=== PATIENT | female | born 1960 | race Caucasian/White ===

== ENCOUNTER 2016-07-19 19:04 | Observation (INO) | payer OTHER ==
[~2016-07-19] VITALS: Ht 162.6 cm; Wt 98.5 kg
[2016-07-19 19:20] VITALS: BP 129/78; PULSE 94; RESP 16; O2SAT 95
[2016-07-19] MEDS ORDERED: LEVO88TA4 PO ×2 (19:52)
[2016-07-19] MEDS ORDERED: PRAV40TA PO (19:52)
--- NOTE | 2016-07-19 19:53 | ED.REPORT ---
HPI-Neurologic Deficit Date of Service July 19, 2016 ED Provider: Jos Cheatham MD 55 y/o female with a hx of brain injury in 1967, TIA and DM presents to the ED complaining of left arm weakness, onset 2 days ago. The pt states her sx originally started out with stiffness and throbbing pain, which resolved after she used a hot pack and took Tylenol. Though the pain resolved, her left arm, extending from her forearm to her shoulders, became increasingly stiff and numb. She has had similar sx over the years due to left side brain injury during childhood but current sx are significantly worse.The pt denies any significant change in her left hand and neck. Pt also reports intermittent nausea, dysphasia, blurred vision, back muscle spasms, diminished sensation in the left arm, chronic left foot drop, difficulty sitting up independently and mild numbness in her hips. The pt went to [place] for a wedding and reports she hasn't been the same since returning. The pt also reports consulting Dr. Stout who recognized 5 spots of demyelination on the brain, neck and spine on an MRI a couple of months ago. She has experienced sx suspected to be MS intermittently over several years, her impression is that she does not have an established diagnosis. Neurologist: Dr. Stout Nursing Notes Stated Complaint: LEFT ARM WEAKNESS Chief Complaint: Neuro Symptoms/ Deficits Nursing Notes Reviewed: Yes Allergies: Coded Allergies: gluten (Verified Allergy, Intermediate, 07/19/16) Uncoded Allergies: PENICILLIN (Allergy, Intermediate, RASH, 07/19/16) CONTRAST DYE (Allergy, Unknown, ANAPHALXIS, 07/19/16) Scheduled Cholecalciferol (Vitamin D3) (Vitamin D) 5,000 Unit Capsule 6,000 UNIT PO DAILY Cyanocobalamin (Vitamin B-12) (Vitamin B-12) 500 Mcg Lozenge 500 MCG PO DAILY Levothyroxine (Levothyroxine) 88 Mcg Tablet 88 MCG PO Levothyroxine (Levothyroxine) 88 Mcg Tablet 132 MCG PO MONDAY Multivitamin (Multi Vitamin Daily) 1 Each Tablet 1 EACH PO DAILY Pravastatin (Pravastatin) 40 Mg Tablet 40 MG PO HS Ubidecarenone (Co Q-10) 100 Mg Capsule 100 MG PO BID Vit B Comp/C/FA/Iron/Vit E (Vitamin B Complex Tablet) 1 Each Tablet 1 EACH PO DAILY Miscellaneous Medications Calcium Carb/Magnesium Cmb #10 (Marshall-Mag Tablet Chewable) 1 Each Tab.chew 1 EACH PO General Time Seen by Provider: 19:52 Chief Complaint Weakness arm... (Left) Hx Obtained From: Patient Arrived By: Walk-in Sudden in Onset?: No Onset Occurred: 2 days ago Symptom Duration: Since onset Past Medical History Past Medical History Reports: Diabetes mellitus, Transient ischemic attack Past Surgical History none reported Smoking History Unknown if Ever Smoker Ambulatory Status Independent Review of Systems Reports: Dysphasia Reports: Back muscle spasms Reports: Left arm spasms Reports: Diminished sensation in left arm GI: Reports: Nausea Musculoskeletal: Reports: Back pain, Extremity pain, Denies: Neck pain Neurologic: Reports: Focal weakness, Numbness (Left arm), Vision change, Weakness Complete sys rev & neg: except as marked. Physical Exam Initial Vital Signs Vital Signs (First) Date Time Temp Pulse Resp B/P Pulse Ox O2 Delivery O2 Flow Rate FiO2 07/19/16 19:20 37.1 94 16 129/78 95 Room Air Initial VS: Reviewed Head / Eyes: Atraumatic, Normocephalic, PERRL, EOMI Cardiovascular: Heart rate NL, Regular rhythm, Heart sounds NL, No gallop, No murmurs Neurologic: Oriented X3, Speech NL No facial droop. Shoulder shrug absent on left side. Flexion/Extension met with spastic resistance on left arm. Left hand pharmacy technologist = 3/5 Decreased pin prick sensation on left arm. ENT: Atraumatic, Airway patent, Mucous membranes moist Uvula elevates to midline Lower Extremity / Pelvis / MS: Atraumatic, Full range of motion, Neurologic intact, Vascular intact Abnormal Mood/Affect: Positive: Anxious Interpretation & Diagnostics Exam: MR brain with contrast Impression: there are several nonspecific bilateral punctate areas of increased signal intensity on T2 and flair within the periventricular and subcortical white matter. MS plaques or possible given the clinical history. Signed: J Carlos Barrett M.D. 07/19/16; 23:24 Lab Results Interpretation Result Diagram: 07/19/16200407/19/162004 Test 07/19/16 20:03 07/19/16 20:05 Urine Color Straw (YELLOW) Urine Appearance Clear (CLEAR,HAZY) Urine pH 5.5 (5.0-8.0) Urine Specific [place] <1.005 (1.003-1.035) Urine Protein Negativemg/dL (NEG,TRACE) Urine Glucose (UA) Negativemg/dL (NEGATIVE) Urine Ketones Negativemg/dL (NEGATIVE) Urine Occult Blood Moderate (NEGATIVE) Urine Nitrite Negative (NEGATIVE) Urine Bilirubin Negative (NEGATIVE) Urine Urobilinogen Normalmg/dL (NORMAL) Urine Leukocyte Esterase Negative (NEGATIVE) Urine RBC 0-2/hpf (0-2) Urine WBC 0-5/hpf (0-5) Urine Epithelial Cells Occasional/hpf (NONE-MOD) Urine Crystals None seen (NONE SEEN) Urine Bacteria None/hpf (NONE-FEW) Urine Hyaline Casts None/lpf (NONE) Urine Granular Casts None seen (NONE SEEN) Urine Waxy Casts None seen (NONE SEEN) Urine Red Blood Cell Casts None seen (NONE SEEN) Urine White Blood Cell Casts None seen (NONE SEEN) Urine Mucus None seen (None Seen) Urine Trichomonas None seen (NONE SEEN) Urine Yeast None (NONE SEEN) Urinalysis Comment None Urine Culture Reflexed Not indicated Urine Osmolality 313mOs/kH2O (250-1200) Urine Random Creatinine 9.9mg/dL (15-278) Urine Random Potassium 38mEq/L White Blood Count 6.5th/mm3 (3.8-10.1) Red Blood Count 4.87mil/mm3 (3.90-5.20) Hemoglobin 15.1g/dL (12.0-15.6) Hematocrit 44.1% (35.0-46.0) Mean Corpuscular Volume 90.6fL (81-100) Mean Corpuscular Hemoglobin 31.0pg (27.0-35.0) Mean Corpuscular Hemoglobin Concent 34.2% (32.0-37.0) Red Cell Distribution Width 13.7% (12.3-15.4) Platelet Count 244bil/L (150-400) Neutrophils (%) (Auto) 53.4% (40-74) Lymphocytes (%) (Auto) 37.5% (14-46) Monocytes (%) (Auto) 7.4% (4-12) Eosinophils (%) (Auto) 0.9% (0-5) Basophils (%) (Auto) 0.5% (0-3) Erythrocyte Sedimentation Rate 32mm/hr (0-40) Prothrombin Time 9.6sec (8.1-12.5) Prothromb Time International Ratio 0.90ratio Activated Partial Thromboplast Time 26.1sec (22.8-33.0) Sodium Level 138mEq/L (134-144) Potassium Level 3.4mEq/L (3.5-5.2) Chloride Level 100mEq/L (97-108) Carbon Dioxide Level 20mmol/L (18-29) Blood Urea Nitrogen 16mg/dL (6-24) Creatinine 0.71mg/dL (0.57-1.00) Estimat Glomerular Filtration Rate 122mL/min (>59) Glucose Level 117mg/dL (60-99) Osmolality 308 (275-300) Calcium Level 9.8mg/dL (8.5-10.1) Magnesium Level 2.2mg/dL (1.6-2.6) Total Bilirubin 0.2mg/dL (0.0-1.2) Aspartate Amino Transf (AST/SGOT) 27U/L (0-50) Alanine Aminotransferase (ALT/SGPT) 25U/L (0-32) Alkaline Phosphatase 75U/L (25-150) Total Creatine Kinase 112U/L (21-215) Troponin T < 0.010ug/L (0.0-0.011) C-Reactive Protein 0.4mg/dL (0.0-0.5) Total Protein 7.8g/dL (6.4-8.4) Albumin 4.7g/dL (3.4-5.0) Thyroid Stimulating Hormone (TSH) 1.610uIU/mL (0.450-4.500) Free Thyroxine 1.77ng/dL (0.82-1.77) Hold Caba Top Tube Received (Received) ECG Interpretation ECG Interpretation: Sinus tachycardia. Rate 104. Time: 20:03 Interpreted by: ED physician Re-Eval/Medical Decision Source of Hx: Old records Re-Evaluation/Progress : Time of Eval: 21:00 Re-Evaluation/Progress Note: Rechecked pt. Discussed lab, imaging results and diagnosis. . All questions addressed. Consultation #1: Referral / Consult Name: Tobias Garcia MD Consulted With: Neurology Call Returned at: 21:02 Template Clerk: Agrees with eval, Agrees with plan Consultation #2: Referral / Consult Name: Kalia Ortiz MD Call Returned at: 22:14 Template Clerk: Will see patient, Agrees with eval, Agrees with plan, Accepts admit Counseled Regarding: Diagnosis, Lab results, Need for admission Discharge & Departure Impression: Primary Impression: Left arm weakness Additional Impression: Multiple sclerosis exacerbation Disposition: ADMITTED TO HOSPITAL Discharge Condition All VS Reviewed: Yes Referrals: Antwon Ordoñez DO (PCP) Scribe Attestation Portions of this note were transcribed by Germain James. I, , personally performed the history, physical exam and medical decision-making;I reviewed and confirmed the accuracy of the information in the transcribed note. Signed by Luis Aguero. 07/19/16 1656 copies to: Antwon Ordoñez Donald L MD July 19, 2016 19:53 Germain James July 19, 2016 21:14
[2016-07-19 20:11] LABS: BASOPHILS % (AUTO) 0.5 % (0-3); EOSINOPHILS % (AUTO) 0.9 % (0-5); MONOCYTES % (AUTO) 7.4 % (4-12); Mean Corpuscular Volume 90.6 fL (81-100); NEUTROPHILS % (AUTO) 53.4 % (40-74); Platelet Count 244 bil/L (150-400)
[2016-07-19 20:25] LABS: APPEARANCE,URINE CLEAR (CLEAR,HAZY); COLOR,URINE STRAW (YELLOW); OCCULT BLOOD,URINE MODERATE (NEGATIVE); PH,URINE 5.5 (5.0-8.0); UROBILINOGEN,URINE NORMAL (NORMAL)
[2016-07-19 20:29] LABS: INR 0.9 ratio
--- NOTE | 2016-07-19 20:34 | DRSVH ---
PROCEDURE: CT BRAIN WITHOUT CONTRAST ([id number]) INDICATIONS: Stroke TECHNIQUE: Noncontrast 4.5 mm thick angled axial sections acquired from the foramen magnum to the vertex, with c oronal reformats. COMPARISON: None. FINDINGS: Image quality: Degraded by motion artifact. CSF spaces: Basal cisterns are patent. No extra-axial fluid collections. The ventricles are symmet vick in size and shape. Brain: No intracranial bleeds or masses. There is cerebral volume loss for age, with resultant vent ricular and sulcal prominence. There are periventricular and deep white matter chronic small vessel ischemic changes. There is intracranial internal carotid artery atherosclerosis. Skull and face: Calvarium and visualized facial bones appear intact, without suspicious lesions. Sinuses: Visualized sinuses and mastoids are clear. IMPRESSION: No acute intracranial process. Dictated by: Jesse Posey M.D. on 07/19/2016 at 20:29 Approved by: Jesse Posey M.D. on 07/19/2016 at 20:33
[2016-07-19 20:35] LABS: TROPONIN T < 0.010 ug/L (0.0-0.011)
[2016-07-19] MEDS ORDERED: Ondansetron 8 mg ODT Tablet PO ONE (21:10)
[2016-07-19] MEDS ORDERED: LORazepam 1 mg Tablet PO ONE (21:15)
[2016-07-19 21:20] VITALS: BP 158/59; PULSE 100; RESP 16; O2SAT 97
[2016-07-19] MEDS ORDERED: Polyethylene Glycol (PEG) 17 Gm Powder PO PRN (22:05)
[2016-07-19] MEDS ORDERED: Ondansetron 2 mg/mL 2 mL Inj IVPUSH PRN (22:05)
[2016-07-19] MEDS ORDERED: Alum-Mag Hydrox-Simeth 30 mL Suspension PO PRN (22:05)
[2016-07-19] MEDS: LORazepam 1 mg Tablet PO PRN (22:13)
[2016-07-19] MEDS ORDERED: Potassium Chloride 20 mEq SR Tablet PO ONE (22:15)
[2016-07-19 23:10] VITALS: BP 127/68; PULSE 85; RESP 20; O2SAT 98
[2016-07-19] MEDS: HYDROcodone-APAP 5-325 mg Tablet PO PRN (23:10)
[2016-07-19 23:22] VITALS: PULSE 96
[2016-07-19] MEDS ORDERED: VIT1TABL83 PO (23:26)
[2016-07-19] MEDS ORDERED: CYAN500L4 PO (23:26)
[2016-07-19] MEDS ORDERED: CALC-714 PO (23:26)
[2016-07-19] MEDS ORDERED: MULT-1018 PO (23:26)
[2016-07-19] MEDS ORDERED: CHOL500051 PO (23:26)
[2016-07-19] MEDS ORDERED: UBID100C25 PO (23:26)
[2016-07-20] MEDS ORDERED: Potassium Chloride 20 mEq SR Tablet PO ONE (00:10)
--- NOTE | 2016-07-20 00:44 | PCM.HPMED ---
Subjective Date of Service July 19, 2016 Primary Provider: Admitting Physician: Kalia Ortiz MD Primary Care Physician: Antwon Ordoñez DO Attending Physician: Kalia Ortiz MD Chief Complaint: Left arm weakness History of Present Illness: 55-year-old female with reported history of Sjogren's disease, celiac disease, anoxic brain injury, and Adalberto's who presented to the ED with complaints of left arm weakness 3 days. She reports she has had left arm weakness before, which she attributes to her anoxic brain injury, but not to this extent. She states there was also associated stiffness and pain originally, but that has improved with a hot pack and Tylenol. She continues to have left arm weakness, and also has chronic left foot drop. She reports intermittent associated nausea , dysphasia, blurred vision, and headaches. She was in [place] for a wedding a few weeks ago, and reports she hit her head on the corner of a cabinet, but there was no LOC. She denies any fevers, cough, rash, or facial asymmetry. She is currently a patient of Dr. Rogers, neurology. She has had multiple MRIs recently for a possible MS workup. In the ER, patient's Vitals were stable. Her CBC and CMP were unremarkable except a potassium of 3.4. She did have a UA that was positive for moderate blood but no RBC. She had a CT scan that did not show any acute changes. 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 Surgical History section Hysterectomy appendectomy Family History Denies any autoimmune disease in family Social History Hx Alcohol Use: Yes ("once in a while") Hx Substance Use: No Hx Tobacco Use: No Living Arrangement: with Family Exam Vital Signs Vital Sign - Last Date Time Temp Pulse Resp B/P Pulse Ox O2 Delivery O2 Flow Rate FiO2 07/19/16 21:20 100 16 158/59 97 Room Air 07/19/16 19:20 37.1 Exam Gen: Well developed female who appears in NAD, AOx3 HEENT: Nc/At, PERRLA, EOMI, sclera anicteric, Oropharynx moist and pink Neck: Soft, nontender CV: RRR, no m/r/c, peripheral pulses intact and equal Resp: CTAB, no w/r/c, normal resp effort Abd: Soft, NT, ND, obese, NABS MSK: MS grossly intact in RUE and RLE. Patient unable to raise left arm with moderately decreased pillow cleaner strength. Mild decrease in MS of left leg, with clonus to dtr testing. Neuro: CN 2-12 grossly intact, face symmetric, light sensation intact Skin: Warm, dry, intact Psych: Appropriate mood and affect, linear thought process. Lab and Diagnostics Result Diagram: 07/19/16200407/19/162004 X-Rays, CTs and MRIs PROCEDURE: CT BRAIN WITHOUT CONTRAST ([id number]) IMPRESSION: No acute intracranial process. Assessment & Plan 55-year-old female with reported history of Sjogren's disease, celiac disease, anoxic brain injury, and Adalberto's who presented to the ED with complaints of left arm weakness 3 days Left Arm Weakness, Present on Admission Patient with a history of multiple neurological symptoms and intermittent left arm weakness. There is some questioning of MS or periodic paralysis by her neurologist. She is mildly hypokalemic on presentation today and has had normal potassium with recent labs. She still could be having a CVA, although that seems unlikely with her history. Will await MRI to assess for TIA/CVA Will order urine labs to assess for possibility of hypokalemic periodic paralysis PT/OT for assessment Neurology consulted CRP, ESR to evaluate for any inflammatory myopathies CPK to evaluate moderate blood without RBC in urine further. May be due to muscle breakdown from extended left arm weakness. Hypokalemia, POA K 3.4 on admission Replenish with oral potassium Hyperlipidemia, POA Continue Pravastatin Adalberto's, POA Continue home Levothyroxine dosing TSH/FT4 pending Celiac Disease, POA Avoid gluten products Tylenol prn fever Bowel regimen prn constipation Code Status: Full resuscitation Dispo: Patient is admitted under obs status with LOS <2 midnights due to risk of adverse events, medical complexity, and decompensation. . Pain Evaluation: Adequate Pain Control VTE Prophylaxis: Sub-Q Enoxaparin, SCDs Resuscitation Status: CPR: Attempt Resuscitation Attending Statement The patient was seen and examined together with Dr. Burleson on 07/19 and I agree with the history, exam and plan as outlined in the note above. Adam Burleson DO July 19, 2016 22:23 Kalia Ortiz MD July 20, 2016 00:52
[2016-07-20] MEDS: 0.9% Sodium Chloride 1,000 ML IV SCH ×2 (01:39→13:20)
[2016-07-20 03:10] VITALS: BP 120/76; PULSE 72; RESP 22; O2SAT 94
[2016-07-20] MEDS: HYDROcodone-APAP 5-325 mg Tablet PO PRN ×4 (05:37→20:55)
[2016-07-20 07:24] LABS: BASOPHILS % (AUTO) 0.6 % (0-3); EOSINOPHILS % (AUTO) 0.8 % (0-5); MONOCYTES % (AUTO) 6.1 % (4-12); Mean Corpuscular Hemoglobin 30.7 pg (27.0-35.0); Mean Corpuscular Volume 91.8 fL (81-100); NEUTROPHILS % (AUTO) 52.7 % (40-74); Platelet Count 212 bil/L (150-400)
[2016-07-20] MEDS: LORazepam 1 mg Tablet PO PRN ×2 (08:19→15:43)
[2016-07-20 09:51] VITALS: BP 134/81; PULSE 81; RESP 20; O2SAT 97
--- NOTE | 2016-07-20 09:55 | DRSVH ---
PROCEDURE: MRI BRAIN WITH AND WITHOUT CONTRAST ([id number]) INDICATIONS: Left arm weakness and spasticity TECHNIQUE: Noncontrast axial T1 spin echo, axial T2 fast spin echo, sagittal and axial FLAIR, coronal T2 fast sp in echo, axial gradient echo, axial diffusion and ADC through the brain. After the administration of contrast, axial and coronal 3D VIBE or T1 spin echo with fat saturation through the brain. COMPARISON: [facility], MR, MR MS BRAIN W&WO CON, 12/09/2015, 13:01. [facility], CT, CT BRAIN WO CON, 07/19/2016, 20:09. FINDINGS: Image quality: Limited by patient motion artifact. CSF Spaces: Basal cisterns are patent. No extra-axial fluid collections. Ventricles are normal in size and shape. Brain: No midline shift. No intracranial bleeds. There is a small, approximately 0.9 x 0.7 x 0.6 cm left parietal convexity, parafalcine extra-axial mass which demonstrates homogeneous postcontrast en hancement most consistent with meningioma. No abnormal intracranial enhancement. The brainstem appe ars normal. Diffusion-weighted images demonstrate no acute ischemic insults. No susceptibility weigh cathleen abnormalities are identified in the brain parenchyma. A few, small, punctate foci of increased T2 signal noted in the periventricular and subcortical white matter tracts which is not significantly c hanged compared to prior examination. Normal intravascular flow voids are present. Skull and face: Calvarial marrow is normal in signal. Orbits appear normal. Sinuses: Sinuses and mastoids appear clear. IMPRESSION: 1. No acute intracranial disease process. 2. No areas of acute or chronic infarction. 3. Probable, small, left parietal, parafalcine meningioma. Dictated by: Miriam Nguyen MD, PhD on 07/20/2016 at 9:46 Approved by: Miriam Nguyen MD, PhD on 07/20/2016 at 9:53
[2016-07-20 10:31] VITALS: PULSE 72
[2016-07-20 14:26] VITALS: BP 120/72; PULSE 78; RESP 16; O2SAT 96
[2016-07-20 16:32] VITALS: BP 113/77; PULSE 77; RESP 18; O2SAT 97
--- NOTE | 2016-07-20 18:39 | PCM.PNMED ---
Subjective Date of Service July 20, 2016 Subjective Patient was seen and examined at bedside today. Patient denies any chest pain, shortness of breath, nausea, vomiting, diarrhea. Patient states that her left arm weakness has improved however it is still present but she no longer has any numbness, tingling, or shaking. Overnight events: None Exam Vital Signs Vital Sign - Last Date Time Temp Pulse Resp B/P Pulse Ox O2 Delivery O2 Flow Rate FiO2 07/20/16 16:32 36.3 77 18 113/77 97 Room Air Intake and Output 07/19/16 07/19/16 07/20/16 Cumulative From/Thru 15:00 23:00 07:00 07/19/16 19:20 - 07/20/16 06:32 Intake Total 0 ml 0 ml Output Total 450 ml 450 ml Balance -450 ml -450 ml Intake Oral 0 ml 0 ml Output Urine Total 450 ml 450 ml # Voids 2 2 # Bowel Movements 0 0 Exam Physical Exam: GEN: Patient was awake, alert, responding appropriately to questions HEENT: Pupils equal round and reactive to light, extraocular eye muscles intact , Neck soft supple, trachea midline, nomocephalic/atraumatic CV: +S1/S2, regular rate and rhythm, no murmurs auscultated Respiratory: CTAB, no wheezes, rales, rhonchi GI: +bowel sounds x4, soft, compressible, nontender to palpation EXT: no clubbing, cyanosis, edema Neuro: +2/4 radial and ulnar pulse, AIN/PIN/radial/ulnar nerve intact but sluggish he should had difficulty doing interaction testing each nerve, +4/5 C5 strength 5/5 C7 strength, upper extremity dermatomal sensation intact. Psych: mood and affect were appropriate IVs and Medications Medications Reviewed: Medications were reviewed in detail Lab and Diagnostics Result Diagram: 07/20/16 0655 07/20/16 0655 X-Rays, CTs and MRIs PROCEDURE: CT BRAIN WITHOUT CONTRAST ([id number]) IMPRESSION: No acute intracranial process. Assessment & Plan 55-year-old female with reported history of Sjogren's disease, celiac disease, anoxic brain injury, and Adalberto's who presented to the ED with complaints of left arm weakness 3 days Left Arm Weakness, Present on Admission -Patient with a history of multiple neurological symptoms and intermittent left arm weakness. There is some questioning of MS or periodic paralysis by her neurologist. She is mildly hypokalemic on presentation today and has had normal potassium with recent labs. She still could be having a CVA, although that seems unlikely with her history. -Follow up MRI results to assess for TIA versus CVA -Follow up labs -PT/OT for assessment -Neurology consulted (Dr. Garcia) -CRP, ESR to evaluate for any inflammatory myopathies Hypokalemia, POA -K 3.4 on admission -Replete potassium with 40 mEq IV -Follow up in the morning Hyperlipidemia, POA -Continue Pravastatin Adalberto's, POA -Continue home Levothyroxine dosing -TSH/FT4 1.610/1.77 WNL Celiac Disease, POA -Avoid gluten products Tylenol prn fever Bowel regimen prn constipation Code Status: Full resuscitation VTE Prophylaxis: Sub-Q Enoxaparin, SCDs VTE Mechanical Devices: Intermittant Pneumatic CD Resuscitation Status: CPR: Attempt Resuscitation Maier,Rain L DO July 20, 2016 18:39 . VTE Prophylaxis: Sub-Q Enoxaparin, SCDs VTE Mechanical Devices: Intermittant Pneumatic CD Resuscitation Status: CPR: Attempt Resuscitation Maier,Rain L DO July 20, 2016 18:39 Maier,Rain L DO July 20, 2016 18:39
[2016-07-20 19:02] LABS: Phosphorus 3.5 mg/dL (2.5-4.9)
[2016-07-20 19:51] VITALS: BP 148/89; PULSE 78; RESP 18; O2SAT 99
--- NOTE | 2016-07-20 23:26 | CONS ---
[address] [address] CONSULTATION REPORT PATIENT: KAVYA ALMARAZ : 1960 MR#: [id number] ADMIT: 07/19/2016 JOB ID: [id number] DATE OF SERVICE: 07/20/2016 REQUESTING PROVIDER: Jos Cheatham MD. CHIEF COMPLAINT: Episodic weakness HISTORY OF PRESENT ILLNESS: The patient is a very pleasant 56-year-old right-handed woman with multiple medical problems, who is a patient of Dr. Ordoñez and has seen my partner, Dr. Norma Stout, in the past. She does have a history of white matter changes appreciated on brain imaging and episodic weakness. History was obtained from the chart, my partner, Dr. Norma Stout's note, and the patient and her , Shar, who is at the bedside. She reports that she has seen multiple neurologists in the past and a concern has been as to whether or not she has multiple sclerosis or another etiology of intermittent muscle weakness. She does report that at age [age] she developed peritonitis secondary to a ruptured appendix and was in a coma for a month. She was on high-dose antibiotics and as well had abdominal drains. She reports that she sustained an anoxic brain injury, however, has made a dramatic recovery. She did have resultant left-sided upper and lower extremity weakness and cognitive changes. However, after one year she was strong enough to be able to walk with a leg brace on her left foot. She does have a history of multiple autoimmune disorders including Adalberto's thyrotoxicosis, celiac disease and Sjogren's disease. She reports no family history of any autoimmune diseases. She does report a family history though of celiac disease. She reports that over the last 1-2 years she has developed intermittent episodes of transient weakness which may last up to several days in duration. She reports that the weakness is generalized, however, most pronounced over her left upper and left lower extremities. She reports that she has seen a insulation estimator in the past and did try Plaquenil and was unable to tolerate it. She has tried steroids in the past and required a slow taper to withdrawal from steroids. She also has a history of hypertriglyceridemia, hyperlipidemia and pre-diabetes. She does wear an ankle-foot orthotic on the left ankle. Her medications include levothyroxine and pravastatin. She did see my partner, Dr. Norma Stout, on February 09, 2016. I have reviewed this note in detail. She reports that approximately two weeks ago she took a trip down to attend the wedding of a nephew in [place]. She reports that she suspects that she overexerted herself and that this may have "triggered" this episode of weakness. She reports that she developed generalized weakness 2-3 days ago, however, it was most pronounced in the left upper and left lower extremities. She reports that she also developed pain in her left upper extremity and noted spasms of the left upper extremity. She reports that after being admitted to the hospital and receiving medication that she feels almost back to normal. She does note some mild degree of weakness in the proximal left upper extremity, however, otherwise reports that she feels back to normal. She reports that the pain and spasticity have resolved. We discussed the differential diagnosis in detail. I reviewed her magnetic resonance imaging study of the brain in detail. She also reports that when she was in [place] she became pale and suspects that this also may have "triggered" this episode. PAST MEDICAL HISTORY: As above REVIEW OF SYSTEMS: A complete review of systems was performed. It was remarkable for above-noted. She also takes vitamin D 6000 international units and magnesium citrate. ALLERGIES: She is allergic to: 1. GLUTEN. 2. PENICILLIN. 3. CONTRAST DYE. PAST SURGICAL HISTORY: Status post appendectomy, status post hysterectomy, status post section. FAMILY HISTORY: No neurologic disorders. There is a family history of celiac disease. SOCIAL HISTORY: Occasional alcohol. No tobacco, no drugs. Lives with her . PHYSICAL EXAMINATION: Vital signs: Temperature 36.4, pulse of 78, respiratory rate of 18, blood pressure 148/89, pulse oximetry 99% on room air. General: She is a pleasant, well-developed, well-nourished woman in no acute distress. Head: Normocephalic, atraumatic. Neck is supple. No carotid bruits were auscultated. Negative Kernig. Negative Brudzinski. Chest: Clear to auscultation. Heart: Regular rate and rhythm. Abdomen: Soft, nondistended, nontender. Extremities: No cyanosis, clubbing, or edema. NEUROLOGIC EXAMINATION: Mental status: She is awake, alert, oriented x3. Speech clear and fluent with intact comprehension. There was no aphasia. Cranial nerves: Pupils equal, round, reactive to light. Extraocular movements were smooth and conjugate with no evidence of nystagmus. Face appeared symmetrical. Facial sensation was intact to light touch and temperature. Auditory sensation was intact to finger rub. Palatal elevation was symmetrical. Tongue was midline. Sternocleidomastoid and trapezii were 5/5 bilaterally. Motor: There is mildly increased tone in the left upper and left lower extremities. The left deltoid is 4+/5. The rest of muscles examined are 5/5 with the exception of left foot dorsiflexors which were 5-/5 with increased tone and decreased range of motion. Sensation intact to light touch and temperature. Deep tendon reflexes were symmetrical. Plantars were equivocal bilaterally. Gait was deferred. Coordination: [id number]-jh-[id number] was intact without evidence of dysmetria. IMPRESSION: Episodic weakness. We discussed the differential diagnosis in detail. I discussed with her potential etiologies. We reviewed the workup that has been performed so far. A myasthenia gravis panel was unremarkable. We discussed the possibility of hypokalemic periodic paralysis as suspected by my partner, Dr. Norma Stout. There are case reports of hypokalemic periodic paralysis in patients with Sjogren's disease. There are also reports suggesting that hypokalemic periodic paralysis may be seen in the setting of autoimmune disorders. Although there is no strong family history, she may benefit from obtaining genetic testing as an outpatient. However, I do recommend that prior authorization be obtained from her insurance company prior to the study being performed. I explained this to her in detail. RECOMMENDATIONS: We discussed supplemental potassium 20 mEq up to three times a day as needed at the onset of the reoccurrence weakness. We also discussed and reviewed recommendations by my partner, Dr. Norma Stout, to exercise only to tolerance, recognize stress, and recognize fatigue before it results in weakness. We discussed the importance of staying hydrated. She may also benefit from a trial of acetazolamide 250 mg twice daily. There are different types of hypokalemic periodic paralysis and although this is a rare disorder, it has been seen in the setting of Sjogren's syndrome, as well as other autoimmune disorders. It has also been seen in the setting of thyrotoxic periodic paralysis. Discussed findings and recommendations in detail with the patient and her , Antony I do recommend that she follow up with my partner, Dr. Norma Stout, and she does have an appointment on October 10, 2016, at 4 p.m. I would also recommend that she follow up with her primary care provider and with Dr. Mcintyre, her charge master specialist. Thank you, again, Dr. Cheatham, for allowing me to participate in the care of your patient. Please feel free to contact me with any questions or concerns. As noted, I did review in detail her brain imaging study. She had a brain CT demonstrating periventricular and deep white matter chronic small vessel ischemic changes, and a magnetic resonance imaging study of the brain demonstrating a small, approximately 0.9 x 0.7 x 0.6 cm left parietal convexity parafalcine extra-axial mass which demonstrates homogeneous postcontrast enhancement most consistent with meningioma. No abnormal intracranial enhancement was noted. A few small punctate foci of increased T2 signal were noted in the periventricular and subcortical white matter tracts, which is not significantly changed compared to the prior magnetic resonance imaging study of the brain performed on December 09, 2015. There were no areas of acute or chronic infarction. No acute intracranial disease process. We reviewed the medications that she received during her hospitalization and her initial potassium was noted to be 3.4, today is 4.0. I do recommend a potassium level tomorrow morning. She did receive hydrocodone/acetaminophen tablets one tablet p.o. q.4 h. as needed for moderate pain and lorazepam 1 mg by mouth up to 3 times a day as needed for anxiety or agitation. In addition to the potassium supplementation, she received a total of 60 mEq of potassium chloride. Otherwise, it does not appear that she received any other new medications during the course of this hospital stay. I explained to her that I suspect that the medication most likely resulted in the improvement of her symptoms with the potassium chloride. Thank you, again, for allowing me to participate in the care of this delightful and interesting patient. YOVANY
[2016-07-21] MEDS: 0.9% Sodium Chloride 1,000 ML IV SCH (00:02)
[2016-07-21 00:09] VITALS: BP 114/73; PULSE 63; RESP 18; O2SAT 97
[2016-07-21] MEDS: HYDROcodone-APAP 5-325 mg Tablet PO PRN ×2 (00:59→05:48)
[2016-07-21] MEDS: LORazepam 1 mg Tablet PO PRN ×2 (01:00→09:06)
[2016-07-21 04:34] VITALS: BP 142/77; PULSE 71; RESP 16; O2SAT 95
[2016-07-21 06:14] VITALS: PULSE 75
[2016-07-21 07:56] VITALS: PULSE 70
[2016-07-21 09:13] VITALS: BP 127/74; PULSE 87; RESP 16; O2SAT 96
[2016-07-21] MEDS ORDERED: ACET250T4 PO (11:51)
--- NOTE | 2016-07-21 11:56 | PCM.DIMED ---
Discharge Instructions Date of Service July 21, 2016 Dates of Hospitalization July 19, 2016 at 21:38 Discharge Diagnosis Discharge Diagnosis Left arm weakness most likely secondary to hypokalemia Hyperlipidemia Adalberto's Celiac disease Diet Heart Healthy, Other (please adhere to a gluten-free diet) Activity No restrictions (gradually returned to her normal daily activities) Call your provider Fever or Chills, Bleeding, Chest pain, Vomitting, Weakness (unilateral) Patient Instructions Follow-up Provider: Antwon Ordoñez DO Follow-up with PCP in: 1 week (if an appointment has not been made please call to schedule an appointment) Provider: Norma Stout MD Follow-up in: 6 weeks (please keep your appointment is currently scheduled for 10/10/2016 at 4 PM) Mid-level Provider (F9): Ranulfo Mcintyre MD Follow-up with Mid-level in: 2 weeks (if an appointment has not been made please call to schedule an appointment) Rain Maier DO July 21, 2016 11:56
--- NOTE | 2016-07-21 15:59 | PCM.DC.MED ---
Discharge Summary Date of Service July 21, 2016 Dates of Hospitalization Date of Hospital Admission July 19, 2016 at 21:38 Date of Discharge: July 21, 2016 Providers: Admitting Physician: Kalia Ortiz MD Primary Care Physician: Antwon Ordoñez DO Attending Physician: Kalia Ortiz MD Diagnosis at Time of Discharge Diagnosis at Time of Discharge Left arm weakness most likely secondary to hypokalemia Hyperlipidemia Adalberto's Celiac disease Consultations Neurology (Dr. Champagne) Procedures XRay, CTs & MRIs PROCEDURE: CT BRAIN WITHOUT CONTRAST ([id number]) IMPRESSION: No acute intracranial process. PROCEDURE: MRI BRAIN WITH AND WITHOUT CONTRAST ([id number]) IMPRESSION: 1. No acute intracranial disease process. 2. No areas of acute or chronic infarction. 3. Probable, small, left parietal, parafalcine meningioma. Dictated by: Miriam Nguyen MD, PhD on 07/20/2016 at 9:46 Approved by: Miriam Nguyen MD, PhD on 07/20/2016 at 9:53 Brief History 55-year-old female with reported history of Sjogren's disease, celiac disease, anoxic brain injury, and Adalberto's who presented to the ED with complaints of left arm weakness 3 days. She reports she has had left arm weakness before, which she attributes to her anoxic brain injury, but not to this extent. She states there was also associated stiffness and pain originally, but that has improved with a hot pack and Tylenol. She continues to have left arm weakness, and also has chronic left foot drop. She reports intermittent associated nausea , dysphasia, blurred vision, and headaches. She was in [place] for a wedding a few weeks ago, and reports she hit her head on the corner of a cabinet, but there was no LOC. She denies any fevers, cough, rash, or facial asymmetry. She is currently a patient of Dr. Rogers, neurology. She has had multiple MRIs recently for a possible MS workup. In the ER, patient's Vitals were stable. Her CBC and CMP were unremarkable except a potassium of 3.4. She did have a UA that was positive for moderate blood but no RBC. She had a CT scan that did not show any acute changes. Hospital Course 55-year-old female with reported history of Sjogren's disease, celiac disease, anoxic brain injury, and Adalberto's who presented to the ED with complaints of left arm weakness 3 days Patient presented with left arm weakness and TIA rule out. The patient's MRI showed no intra-cranial acute processes however there was a small, left parietal , parafalcine meningioma. The patient has been advised to maintain her follow- up appointment with Dr. Stout on 10/10/2016 at [address] this time [address] champagne feels that the patient's left arm weakness secondary to hypokalemia and has placed the patient on acetazolamide 250 mg twice a day. The patient was also advised to follow up with her bulldozer operator Dr. Mcintyre as some of her issues could also be secondary to many of the autoimmune issues that the patient has. The patient has been recommended by Dr. champagne also follow-up with her PCP for closer follow-up with her potassium. The patient is being discharged home in stable condition. Hospital course see below: Left Arm Weakness, Present on Admission -Patient with a history of multiple neurological symptoms and intermittent left arm weakness. There is some questioning of MS or periodic paralysis by her neurologist. She is mildly hypokalemic on presentation today and has had normal potassium with recent labs. She still could be having a CVA, although that seems unlikely with her history. -Follow up MRI: No acute intracranial processes noted, probable, small, left parietal, parafalcine meningioma -PT/OT for assessment -Neurology consulted (Dr. Champagne): Advised the patient to take Acetazolamide 250 mg twice a day -CRP, ESR to evaluate for any inflammatory myopathies Hypokalemia, POA (resolved) -K 4.4Meq -Replete potassium with 40 mEq IV -Follow up in the morning Hyperlipidemia, POA -Continue Pravastatin Adalberto's, POA -Continue home Levothyroxine dosing -TSH/FT4 1.610/1.77 WNL Celiac Disease, POA -Avoid gluten products Tylenol prn fever Bowel regimen prn constipation Code Status: Full resuscitation Exam Vital Signs (Last) Date Time Temp Pulse Resp B/P Pulse Ox O2 Delivery O2 Flow Rate FiO2 07/21/16 09:13 36.8 87 16 127/74 96 Room Air Exam Physical Exam: GEN: Patient was awake, alert, responding appropriately to questions HEENT: Pupils equal round and reactive to light, extraocular eye muscles intact , Neck soft supple, trachea midline, nomocephalic/atraumatic CV: +S1/S2, regular rate and rhythm, no murmurs auscultated Respiratory: CTAB, no wheezes, rales, rhonchi GI: +bowel sounds x4, soft, compressible, nontender to palpation EXT: no clubbing, cyanosis, edema Neuro: +2/4 radial and ulnar pulse, AIN/PIN/radial/ulnar nerve intact but sluggishness significantly improved from yesterday. +4/5 C5 strength 5/5 C7 strength, upper extremity dermatomal sensation intact. Psych: mood and affect were appropriate Test 07/19/16 20:03 07/19/16 20:05 07/20/16 06:55 07/21/16 05:31 Urine Color Straw (YELLOW) Urine Appearance Clear (CLEAR,HAZY) Urine pH 5.5 (5.0-8.0) Urine Specific Enigma <1.005 (1.003-1.035) Urine Protein Negativemg/dL (NEG,TRACE) Urine Glucose (UA) Negativemg/dL (NEGATIVE) Urine Ketones Negativemg/dL (NEGATIVE) Urine Occult Blood Moderate (NEGATIVE) Urine Nitrite Negative (NEGATIVE) Urine Bilirubin Negative (NEGATIVE) Urine Urobilinogen Normalmg/dL (NORMAL) Urine Leukocyte Esterase Negative (NEGATIVE) Urine RBC 0-2/hpf (0-2) Urine WBC 0-5/hpf (0-5) Urine Epithelial Cells Occasional/hpf (NONE-MOD) Urine Crystals None seen (NONE SEEN) Urine Bacteria None/hpf (NONE-FEW) Urine Hyaline Casts None/lpf (NONE) Urine Granular Casts None seen (NONE SEEN) Urine Waxy Casts None seen (NONE SEEN) Urine Red Blood Cell Casts None seen (NONE SEEN) Urine White Blood Cell Casts None seen (NONE SEEN) Urine Mucus None seen (None Seen) Urine Trichomonas None seen (NONE SEEN) Urine Yeast None (NONE SEEN) Urinalysis Comment None Urine Culture Reflexed Not indicated Urine Osmolality 313mOs/kH2O (250-1200) Urine Random Creatinine 9.9mg/dL (15-278) Urine Random Potassium 38mEq/L Erythrocyte Sedimentation Rate 32mm/hr (0-40) Prothrombin Time 9.6sec (8.1-12.5) Prothromb Time International Ratio 0.90ratio Activated Partial Thromboplast Time 26.1sec (22.8-33.0) Osmolality 308 (275-300) Magnesium Level 2.2mg/dL (1.6-2.6) Total Bilirubin 0.2mg/dL (0.0-1.2) Aspartate Amino Transf (AST/SGOT) 27U/L (0-50) Alanine Aminotransferase (ALT/SGPT) 25U/L (0-32) Alkaline Phosphatase 75U/L (25-150) Troponin T < 0.010ug/L (0.0-0.011) C-Reactive Protein 0.4mg/dL (0.0-0.5) Total Protein 7.8g/dL (6.4-8.4) Albumin 4.7g/dL (3.4-5.0) Thyroid Stimulating Hormone (TSH) 1.610uIU/mL (0.450-4.500) Free Thyroxine 1.77ng/dL (0.82-1.77) Hold Caba Top Tube Received (Received) White Blood Count 6.2th/mm3 (3.8-10.1) Red Blood Count 4.49mil/mm3 (3.90-5.20) Hemoglobin 13.8g/dL (12.0-15.6) Hematocrit 41.2% (35.0-46.0) Mean Corpuscular Volume 91.8fL (81-100) Mean Corpuscular Hemoglobin 30.7pg (27.0-35.0) Mean Corpuscular Hemoglobin Concent 33.5% (32.0-37.0) Red Cell Distribution Width 13.8% (12.3-15.4) Platelet Count 212bil/L (150-400) Neutrophils (%) (Auto) 52.7% (40-74) Lymphocytes (%) (Auto) 39.5% (14-46) Monocytes (%) (Auto) 6.1% (4-12) Eosinophils (%) (Auto) 0.8% (0-5) Basophils (%) (Auto) 0.6% (0-3) Sodium Level 143mEq/L (134-144) Chloride Level 106mEq/L (97-108) Carbon Dioxide Level 22mmol/L (18-29) Blood Urea Nitrogen 16mg/dL (6-24) Creatinine 0.80mg/dL (0.57-1.00) Estimat Glomerular Filtration Rate 106mL/min (>59) Glucose Level 100mg/dL (60-99) Calcium Level 9.6mg/dL (8.5-10.1) Phosphorus Level 3.5mg/dL (2.5-4.9) Total Creatine Kinase 81U/L (21-215) Potassium Level 4.4mEq/L (3.5-5.2) Discharge Medications Discharge Medications Acetazolamide (Acetazolamide) 250 Mg Tablet 250 MG PO BID Prescribed by: MAX MARCUM DO Cholecalciferol (Vitamin D3) (Vitamin D) 5,000 Unit Capsule 6,000 UNIT PO DAILY (Reported) Cyanocobalamin (Vitamin B-12) (Vitamin B-12) 500 Mcg Lozenge 500 MCG PO DAILY ( Reported) Levothyroxine (Levothyroxine) 88 Mcg Tablet 88 MCG PO MON-MON (Reported) Levothyroxine (Levothyroxine) 88 Mcg Tablet 132 MCG PO MONDAY (Reported) Multivitamin (Multi Vitamin Daily) 1 Each Tablet 1 EACH PO DAILY (Reported) Pravastatin (Pravastatin) 40 Mg Tablet 40 MG PO HS (Reported) Ubidecarenone (Co Q-10) 100 Mg Capsule 100 MG PO BID (Reported) Vit B Comp/C/FA/Iron/Vit E (Vitamin B Complex Tablet) 1 Each Tablet 1 EACH PO DAILY (Reported) Miscellaneous Medications Calcium Carb/Magnesium Cmb #10 (Marshall-Mag Tablet Chewable) 1 Each Tab.chew 1 EACH PO (Reported) Followup Plan Discharge Diet: Heart Healthy, Other (please adhere to a gluten-free diet) Discharge Activity: No restrictions (gradually returned to her normal daily activities) Follow-up Provider: Antwon Ordoñez DO Follow-up with PCP in: 1 week (if an appointment has not been made please call to schedule an appointment) Provider: Norma Stout MD Follow-up in: 6 weeks (please keep your appointment is currently scheduled for 10/10/2016 at 4 PM) Mid-level Provider: Ranulfo Mcintyre MD Follow-up with Mid-level in: 2 weeks (if an appointment has not been made please call to schedule an appointment) Time spent Greater than 35 minutes copies to: Antwon Ordoñez DO; Ranulfo Mcintyre MD; Norma Stout MD, Precious L DO July 21, 2016 15:59
== END 2016-07-21 12:40 | disposition home or self-care (01) ==
LOC: SED 19:04 → OSC 21:38 → UNDOADMOB 21:38 → MOC 21:38 → OSC 22:26
PROVIDERS: ADMIT Hospitalist; ATTEND Hospitalist
DX: E87.6 Hypokalemia (principal); R53.1 Weakness; E78.5 Hyperlipidemia, unspecified; E06.3 Autoimmune thyroiditis; K90.0 Celiac disease; G35 Multiple sclerosis; M35.00 Sjogren syndrome, unspecified; E11.9 Type 2 diabetes mellitus without complications; Z86.73 Personal history of transient ischemic attack (TIA), and cerebral infarction without residual deficits; Z87.820 Personal history of traumatic brain injury; Z88.0 Allergy status to penicillin; Z88.8 Allergy status to other drugs, medicaments and biological substances; Z90.710 Acquired absence of both cervix and uterus
CPT/HCPCS: 36415; 70450; 70553; 80048; 80053; 81000; 82550; 82570; 82948; 83735; 83930; 83935; 84100; 84132; 84133; 84439; 84443; 84484; 85025; 85610; 85651; 85730; 86140; 92610; 93005; 97163; 97166; 97535; 99285; A9585; G0378; G8996; G8997; J1650; J7030